=== PATIENT | female | born 1960 | race Hispanic/Latino ===

== ENCOUNTER → 2018-07-19 | Outpatient (CLI) | payer BC | END | disposition home or self-care (01) | LOC: RAH 15:04 | PROVIDERS: ATTEND Obstetrics & Gynecology | DX: D24.1 Benign neoplasm of right breast (principal) | CPT/HCPCS: 76641 ==

== ENCOUNTER → 2018-08-11 | Outpatient (CLI) | payer BC | END | disposition home or self-care (01) | LOC: RAH 12:58 | PROVIDERS: ATTEND Obstetrics & Gynecology | DX: R31.0 Gross hematuria (principal); R10.2 Pelvic and perineal pain; N32.89 Other specified disorders of bladder | CPT/HCPCS: 76770; 76856 ==

== ENCOUNTER → 2019-02-07 | Outpatient (CLI) | payer BC ==
[~2019-02-07] MED LIST: GADODIAMIDE 10 MMOL/20 ML VIAL IV ONE
== END | disposition home or self-care (01) ==
LOC: RAH 13:52
PROVIDERS: ATTEND Obstetrics & Gynecology
DX: Z80.3 Family history of malignant neoplasm of breast (principal)
CPT/HCPCS: 77049; A9579

== ENCOUNTER → 2021-07-15 | Outpatient (CLI) | payer BC ==
[~2021-07-15] MED LIST changes: -GADODIAMIDE 10 MMOL/20 ML VIAL IV ONE; +GADOTERATE MEGLUMINE 10 MMOL/20 ML VIAL IV ONE
== END | disposition home or self-care (01) ==
LOC: RAH 08:01
PROVIDERS: ATTEND Obstetrics & Gynecology
DX: N60.12 Diffuse cystic mastopathy of left breast (principal); N60.11 Diffuse cystic mastopathy of right breast; Z80.3 Family history of malignant neoplasm of breast; Z80.41 Family history of malignant neoplasm of ovary
CPT/HCPCS: 77049; A9575

== ENCOUNTER → 2023-12-15 | Outpatient (CLI) | payer BC | END | disposition home or self-care (01) | LOC: RAH 08:54 | PROVIDERS: ATTEND Nurse Practitioner Family | DX: G31.89 Other specified degenerative diseases of nervous system (principal); R42 Dizziness and giddiness | CPT/HCPCS: 70551 ==